=== PATIENT | female | born 1965 | race Caucasian/White ===

== ENCOUNTER → 2016-10-16 | Outpatient (CLI) | payer OTHER | LOC: BMCIMAGING 11:01 | PROVIDERS: ATTEND Nurse Practitioner Adult Health | DX: Z12.31 Encounter for screening mammogram for malignant neoplasm of breast (principal) | CPT/HCPCS: G0202 ==

== ENCOUNTER → 2016-10-24 | Outpatient (CLI) | payer OTHER | LOC: BMCIMAGING 09:46 | PROVIDERS: ATTEND Nurse Practitioner Adult Health | DX: Z12.39 Encounter for other screening for malignant neoplasm of breast (principal); R92.0 Mammographic microcalcification found on diagnostic imaging of breast | CPT/HCPCS: G0206 ==

== ENCOUNTER 2016-11-15 07:08 | Day surgery (SDC) | payer OTHER ==
[2016-11-15] MEDS ORDERED: BUPIVACAINE 0.5% 10 ML SDV ONE (07:58)
[2016-11-15] MEDS ORDERED: LIDOCAINE 1% 300 MG/30 ML SDV ONE (07:58)
[2016-11-15] MEDS ORDERED: LIDO/EPI 1% **Not for Epidural 20 ML MDV ONE (07:58)
[2016-11-15] MEDS ORDERED: THROMBIN (BOVINE) 5,000 UNIT VIAL TP ONE (09:40)
== END 2016-11-15 18:00 | disposition home or self-care (01) ==
LOC: FIMAGING 07:08
PROVIDERS: ATTEND Internal Medicine
PROC: 0HBT3ZX Excision of Right Breast, Percutaneous Approach, Diagnostic (ICD-10-PCS; principal; 2016-11-15)
PROC: BH00ZZZ Plain Radiography of Right Breast (ICD-10-PCS; principal; 2016-11-15)
DX: D24.1 Benign neoplasm of right breast (principal); N60.81 Other benign mammary dysplasias of right breast; R92.1 Mammographic calcification found on diagnostic imaging of breast
CPT/HCPCS: G0206

== ENCOUNTER → 2017-09-20 | Outpatient (CLI) | payer OTHER | LOC: FIMAGING 13:01 | PROVIDERS: ATTEND Surgery | DX: N63.10 Unspecified lump in the right breast, unspecified quadrant (principal); N64.52 Nipple discharge ==

== ENCOUNTER 2017-10-05 06:33 | Day surgery (SDC) | payer OTHER ==
[~2017-10-05 06:33] MED LIST changes: -LIDOCAINE 1% 300 MG/30 ML SDV ONE; +ceFAZolin 2 GM/DEXTROSE 100 ML IV ONE; +ceFAZolin 2 GM/SWFI 2 GM/20 ML SYR IVP ONE
[2017-10-05] MEDS ORDERED: LR 1,000 ML IV ONE (07:09)
[2017-10-05] MEDS ORDERED: LIDOCAINE 1% 2 ML INJ ID PRN (07:09)
[2017-10-05] MEDS ORDERED: LIDOCAINE 1% 300 MG/30 ML SDV ONE (09:37)
[2017-10-05] MEDS ORDERED: BUPIVACAINE 0.25% 30 ML SDV ONE (09:37)
[2017-10-05] MEDS ORDERED: NA BICARBONATE 50 MEQ/50 ML VIAL ONE (09:37)
[2017-10-05] MEDS ORDERED: AVITENE POWDER 1 GM JAR TP ONE (09:38)
[2017-10-05] MEDS ORDERED: MIDAZOLAM 2 MG/2 ML VIAL IVP ONE (09:42)
--- NOTE | 2017-10-05 09:42 | PDANEPAE ---
ANE Past Medical History - Cardiovascular History Hx Hypertension: No Hx Arrhythmias: No Hx Chest Pain: No Hx Coronary Artery / Peripheral Vascular Disease: No Hx CHF / Valvular Disease: No Hx Palpitations: No Cardiovascular History Comment: SOMETIMES SL HEART MURMUR DETECTED-NO PROBLEM - Pulmonary History Hx COPD: No Hx Asthma/Reactive Airway Disease: No Hx Recent Upper Respiratory Infection: No Hx Oxygen in Use at Home: No Hx Sleep Apnea: No Sleep Apnea Screening Result - Last Documented: Negative - Neurologic History Hx Cerebrovascular Accident: No Hx Seizures: No Hx Dementia: No - Endocrine History Hx Diabetes: Yes Obesity: mild Endocrine History Comment: NIDDM- WELL MANAGED A1C BELOW 6 - Renal History Hx Renal Disorders: No - Liver History Hx Hepatic Disorders: No - Neurological & Psychiatric Hx Hx Neurological and Psychiatric Disorders: No - Cancer History Hx Cancer: No - Congenital Disorder History Hx Congenital Disorders: No - GI History GERD: no Hx Gastrointestinal Disorders: No - Other Health History Other Health History: LUMP R BREAST;. SEASONAL ALLERGIES - Chronic Pain History Chronic Pain: No - Surgical History Prior Surgeries: APPY AGE 20. WISDOM TEETH EXTRACTION-W/GENERAL ANESTHESIA ANE Review of Systems Review of Systems: - Exercise capacity METS (RN): 5 METS ANE Patient History - Allergies Allergies/Adverse Reactions: No Known Allergies Allergy (Verified 10/03/17 10:24) - Home Medications Home Medications: Metformin HCl [Metformin 1000 mg] 02/14/14 [Last Taken 10/04/17 07:00] Vitamin B-12 10/03/17 [Last Taken 10/03/17] Vitamin D3 10/03/17 [Last Taken 10/03/17] - NPO status NPO Since - Liquids (Date): 10/04/17 NPO Since - Liquids (Time): 21:30 NPO Since - Solids (Date): 10/04/17 NPO Since - Solids (Time): 20:00 - Anes Hx Anes Hx: no prior problems - Smoking Hx Smoking Status: Former smoker Marijuana use: No - Alcohol Use Alcohol Use: Other (3 drinks/week) - Family Anes Hx Family Anes Hx: none ANE Labs/Vital Signs - Vital Signs Blood Pressure: 139/88 Heart Rate: 70 Respiratory Rate: 16 O2 Sat (%): 96 Height: 172.72 cm Weight: 88.451 kg ANE Physical Exam - Airway Neck exam: FROM Mallampati Score: Class 1 Mouth exam: normal dental/mouth exam - Pulmonary Pulmonary: clear to auscultation - Cardiovascular Cardiovascular: regular rate and rhythym - ASA Status ASA Status: II ANE Anesthesia Plan Anesthesia Plan: GA with mask
[2017-10-05] MEDS ORDERED: fentaNYL 100 MCG/2 ML INJ ONE (09:44)
[2017-10-05] MEDS ORDERED: PROPOFOL 200 MG/20 ML VIAL ONE ×2 (09:44→10:08)
[2017-10-05] MEDS ORDERED: ONDANSETRON 4 MG/2 ML VIAL IVP PRN (10:17)
[2017-10-05] MEDS ORDERED: NALOXONE HCL 0.4 MG/ML INJ IVP PRN (10:17)
[2017-10-05] MEDS ORDERED: fentaNYL 100 MCG/2 ML INJ IVP PRN (10:17)
[2017-10-05] MEDS ORDERED: ACETAMINOPHEN 500 MG TAB PO PRN (10:17)
[2017-10-05] MEDS ORDERED: HYDROCODONE/APAP 5/325 TAB PO PRN ×2 (10:17→10:44)
[2017-10-05] MEDS ORDERED: oxyCODONE IR 5 MG TAB PO PRN (10:17)
[2017-10-05] MEDS ORDERED: ONDANSETRON DISINTEGRATING 4 MG TAB PO PRN (10:44)
--- NOTE | 2017-10-05 10:47 | POSTOPPROG ---
Post Op Note Date of Operation: 10/05/17 Surgeon: Khris Baum (, FACS) Anesthesiologist: Jose Alfredo Ashley MD Anesthesia: Other (Specify) (MAC) Pre-op Diagnosis: right breast mass Post-op Diagnosis: same Procedure: right breast biopsy with ultrasound guided needle localization Findings: firm nodule near the tip of the Kopans wire Inf/Abcess present in the surg proc area at time of surgery?: No EBL: Minimal (<10ml) Specimen(s): right breast tissue
--- NOTE | 2017-10-05 11:23 | GOP ---
[f rep st] OPERATIVE REPORT DATE OF OPERATION: 10/05/2017 SURGEON: Khris Baum MD, FACS ANESTHESIA: Monitored anesthesia care. ANESTHESIOLOGIST: Jose Alfredo Ashley MD. PREOPERATIVE DIAGNOSIS: Right breast mass. POSTOPERATIVE DIAGNOSIS: Right breast mass. PROCEDURE PERFORMED: Right excisional breast biopsy with preoperative ultrasound-guided needle localization. FINDINGS: Firm nodule near the tip of the Kopans wire which was inserted from medial to lateral at the 3 o'clock position 2 cm from the areolar border. Excised specimen submitted for permanent section. ESTIMATED BLOOD LOSS: 10 cc. DESCRIPTION OF PROCEDURE: After informed consent was obtained, the patient was brought to the operating room and placed supine. The right breast was prepped and draped in usual fashion. Before proceeding, a time-out and identification of the patient was performed. Patient had undergone preoperative ultrasound-guided needle localization by Dr. Abner Gomez and had a wire exiting the breast at the 3 o'clock position approximately 2 cm from the areolar border. The areolar border was infiltrated with 0.25% Marcaine and 1% lidocaine, incised between the 1 and 4 o'clock positions, and dissection carried out through the skin and subcutaneous tissues , and the wire was intercepted as it coursed from medial to lateral. The tissue around the shaft and tip of the wire were widely excised after infiltrating additional local anesthetic into the deeper breast tissue. Specimen was removed from the field, noted to contain a firm nodule near the tip of the wire. Specimen was removed from the field and submitted intact for permanent section. Hemostasis was secured with cautery. The subcutaneous tissues were approximated with 3-0 Vicryl suture. Skin was closed with 3-0 Monocryl suture in a subcuticular fashion. Topical Dermabond was applied. The patient was returned to the recovery room in satisfactory condition. Needle, sponge, and instrument count were correct. COMPLICATIONS: None. /[id number]/MODL MTDD
[2017-10-05 11:48] VITALS: BP 137/78
--- NOTE | 2017-10-05 12:51 | POSTANESTH ---
Post Anesthetic Evaluation Cardiovascular Status: Normal, Stable Respiratory Status: Normal, Stable Level of Consciousness/Mental Status: Can Participate in Eval Pain Control: Adequate, Prn Tx Ordered Nausea/Vomiting Control: Adequate, Prn Tx Ordered Complications Possibly Related to Anesthesia: None Noted
--- NOTE | 2017-10-05 15:56 | PDHPUP ---
History & Physical Update H&P update statement: This history and physical update is based on an assessment of the patient which was completed after admission or registration (within 24 hours), but prior to the surgery/procedure. H&P update: H&P reviewed & patient examined, no change in patient's condition since H&P completed
== END 2017-10-05 12:35 | disposition home or self-care (01) ==
LOC: FSGY 06:33
PROVIDERS: ATTEND Surgery
PROC: 0HBT3ZX Excision of Right Breast, Percutaneous Approach, Diagnostic (ICD-10-PCS; principal; 2017-10-05 09:30)
DX: N60.11 Diffuse cystic mastopathy of right breast (principal); N95.9 Unspecified menopausal and perimenopausal disorder; F17.210 Nicotine dependence, cigarettes, uncomplicated; Z79.890 Hormone replacement therapy; Z68.31 Body mass index [BMI] 31.0-31.9, adult
CPT/HCPCS: J0690; J2250; J2704; J3010

== ENCOUNTER → 2017-10-05 | Outpatient (CLI) | payer OTHER ==
[~2017-10-05] MED LIST: LIDOCAINE 1% 300 MG/30 ML SDV ONE
--- NOTE | 2017-10-05 09:38 | PDANEPAE ---
ANE History of Present Illness breast biopsy, R ANE Past Medical History - Cardiovascular History Hx Hypertension: No Hx Arrhythmias: No Hx Chest Pain: No Hx Coronary Artery / Peripheral Vascular Disease: No Hx CHF / Valvular Disease: No Hx Palpitations: No - Pulmonary History Hx COPD: No Hx Asthma/Reactive Airway Disease: No Hx Recent Upper Respiratory Infection: No Hx Oxygen in Use at Home: No Hx Sleep Apnea: No - Endocrine History Hx Diabetes: Yes Obesity: mild - Renal History Hx Renal Disorders: No - Liver History Hx Hepatic Disorders: No ANE Review of Systems Review of Systems: ANE Patient History - Allergies Allergies/Adverse Reactions: No Known Allergies Allergy (Verified 10/03/17 10:24) - Home Medications Home Medications: Metformin HCl [Metformin 1000 mg] 02/14/14 [Last Taken 10/04/17 07:00] Vitamin B-12 10/03/17 [Last Taken 10/03/17] Vitamin D3 10/03/17 [Last Taken 10/03/17] - Smoking Hx Smoking Status: Never smoked
== END ==
LOC: FIMAGING 06:31
PROVIDERS: ATTEND Surgery
DX: N63.10 Unspecified lump in the right breast, unspecified quadrant (principal)

== ENCOUNTER → 2018-09-26 | Outpatient (CLI) | payer OTHER | LOC: FIMAGING 11:38 | PROVIDERS: ATTEND Surgery | DX: Z12.31 Encounter for screening mammogram for malignant neoplasm of breast (principal) ==